=== PATIENT | female | born 2000 | race Two or more races ===

== ENCOUNTER 2022-04-22 10:04 | Emergency (ER) | payer MEDICAID, OTHER ==
[~2022-04-22] VITALS: Ht 167.6 cm; Wt 76.1 kg
[2022-04-22 12:10] VITALS: BP 114/72
[2022-04-22] MEDS ORDERED: IBUP600T27 PO (13:04)
== END 2022-04-22 13:22 | disposition home or self-care (01) ==
LOC: ER 10:04 → EDBD 10:04 → ER 13:19
DX: S16.1XXA Strain of muscle, fascia and tendon at neck level, initial encounter (principal); Z79.1 Long term (current) use of non-steroidal anti-inflammatories (NSAID); V49.9XXA Car occupant (driver) (passenger) injured in unspecified traffic accident, initial encounter; Y93.89 Activity, other specified; Y92.89 Other specified places as the place of occurrence of the external cause; Y99.8 Other external cause status
CPT/HCPCS: 72040